=== PATIENT | female | born 1985 | race Caucasian/White ===

== ENCOUNTER 2016-10-22 19:35 | Emergency (ER) | payer SELFPAY ==
[2016-10-22] MEDS ORDERED: NAPR-260 PO (23:51)
[2016-10-22] MEDS ORDERED: CYCL-319 PO (23:51)
== END 2016-10-22 19:55 | disposition left against medical advice (07) ==
LOC: E/R 19:35
DX: Z53.21 Procedure and treatment not carried out due to patient leaving prior to being seen by health care provider (principal)

== ENCOUNTER 2016-10-22 22:17 | Emergency (ER) | payer OTHER ==
[~2016-10-22] VITALS: Ht 160 cm; Wt 69.5 kg
[2016-10-22 22:21] VITALS: Ht 160 cm; Wt 69.5 kg
[2016-10-22] MEDS ORDERED: KETOROLAC 60 MG INJ IM STA (22:30)
[2016-10-22] MEDS ORDERED: LORAZEPAM 2 MG INJ IM ONE (22:30)
--- NOTE | 2016-10-22 23:38 | RADRPT ---
PROCEDURE: XR Lumbar Spine. CLINICAL INDICATION: Lumbar spine pain. TECHNIQUE: AP, lateral, and cone-down lateral view of the lumbar spine were obtained. COMPARISON: No prior studies are available for comparison. FINDINGS: The alignment of the lumbar spine is within normal limits. There are anterior osteophytes from L3-S 1 without significant narrowing of the intervertebral disc spaces. There are no significant associa kristen discogenic endplate changes. The vertebral body heights and marrow density are normal in appeara nce. There is mild to moderate facet spondylosis at L4-5 and L5-S1 without significant neural vinay inal narrowing. The remaining neural foramina appear patent. The paraspinal soft tissues unremarka ble. There is no evidence of fracture. There is a subtle low density projected over the left L1 tra nsverse process. This may be related to rudimentary rib, however fracture is not excluded. There i s a subtle low density projected over the left L3 transverse process, which is most suggestive of cotto perimposition of shadows, however fracture is not excluded. IMPRESSION: 1. Subtle low densities projected over the L1 and L3 left transverse processes, which are nonspecif ic. CT may be helpful for further evaluation to exclude underlying fracture. 2. Mild degenerative disc disease at L3-4, L4-5 and L5-S1. 3. Mild to moderate facet spondylosis at L4-5 and L5-S1 without significant neural foraminal narrow ing. RPTAT: HGAS .Artem Gaitan MD, Date Time Electronically viewed and signed by .Artem Gaitan MD, on 10/22/2016 23:37 .S/
--- NOTE | 2016-10-22 23:50 | ERD ---
ER Documentation Chief Complaint Date/Time DATE: 10/22/16 TIME: 23:49 Chief Complaint BACK PAIN X 1 DAY HPI This is a 31-year-old female, back pain for 1 day. Low back pain. No trauma. Nonfocal neurologically. No bowel or bladder incontinence. No other current complaints. Pain is mild to moderate intensity, with no exacerbating relieving factors ROS All systems reviewed and are negative except as per history of present illness. Medications Home Meds No Active Prescriptions or Reported Meds Allergies Allergies: Coded Allergies: No Known Allergy (Unverified , 10/22/16) PMhx/Soc Medical and Surgical Hx: pt denies Medical Hx History of Surgery: Yes (uterine polyp removal 2016) Anesthesia Reaction: No Hx Neurological Disorder: No Hx Respiratory Disorders: No Hx Cardiac Disorders: No Hx Psychiatric Problems: No Hx Alcohol Use: Yes Hx Substance Use: No Hx Tobacco Use: No Smoking Status: Never smoker Physical Exam Vitals Vital Signs Date Time Temp Pulse Resp B/P Pulse Ox O2 Delivery O2 Flow Rate FiO2 10/22/16 22:30 98.7 64 16 125/78 100 Room Air 10/22/16 22:21 65 16 130/74 100 Physical Exam Const: [] Head: Atraumatic Eyes: Normal Conjunctiva ENT: Normal External Ears, Nose and Mouth. Neck: Full range of motion..~ No meningismus. Resp: Clear to auscultation bilaterally Cardio: Regular rate and rhythm, no murmurs Abd: Soft, non tender, non distended. Normal bowel sounds Skin: No petechiae or rashes Back: No midline or flank tenderness Ext: No cyanosis, or edema Neur: Awake and alert Psych: Normal Mood and Affect Results 24 hrs Current Medications Medications (Trade) Dose Ordered Sig/Jewel Route PRN Reason Start Time Stop Time Status Last Admin Dose Admin Ketorolac Tromethamine (Toradol) 60 mg ONCE STAT IM 10/22/16 22:30 10/22/16 22:32 DC 10/22/16 22:44 Lorazepam (Ativan) 1 mg ONCE ONCE IM 10/22/16 22:30 10/22/16 22:32 DC 10/22/16 22:44 Procedures/MDM Patient's musculoskeletal symptoms have stabilized while they have been evaluated in the department and are appropriate for outpatient work up. No evidence of cauda equina, cord compression, infiltrative, or infectious etiology. Departure Diagnosis: Primary Impression: Back pain Back pain location: low back pain Chronicity: acute Back pain laterality: midline Sciatica presence: without sciatica Qualified Code: M54.5 - Acute midline low back pain without sciatica Condition: Stable AMANDA STOKES Oct 22, 2016 23:50
[2016-10-22] MEDS ORDERED: CYCL-319 PO (23:51)
[2016-10-22] MEDS ORDERED: NAPR-260 PO (23:51)
[2016-10-23 00:17] VITALS: BP 122/77; PULSE 67; RESP 16; TEMP 98.7
== END 2016-10-23 00:17 | disposition home or self-care (01) ==
LOC: EDUNIT# 22:17 → E/R 22:17
DX: M54.5 Low back pain (principal)
CPT/HCPCS: 72100; 96372; J1885; J2060; Z7502